=== PATIENT | female | born 1990 | race American Indian/Alaskan Native ===

== ENCOUNTER 2016-09-01 19:18 | Emergency (ER) | payer OTHER, MEDICAID ==
[2016-09-01] MEDS ORDERED: VALIUM PO ONE (20:17)
[2016-09-01] MEDS ORDERED: PERCOCET 5/325 PO ONE (20:17)
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
[2016-09-01 21:22] VITALS: BP 136/73
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
--- NOTE | 2016-09-02 07:40 | XRay Report ---
ROUTINE CHEST, TWO VIEWS: Trauma, pain. PA and lateral views demonstrate the heart and mediastinal contour to be of normal size and shape. The lungs are clear and fully expanded and the soft tissues and bony structures are normal. IMPRESSION: Normal study.
== END 2016-09-01 21:30 | disposition home or self-care (01) ==
LOC: ED 19:18
DX: S39.012A Strain of muscle, fascia and tendon of lower back, initial encounter (principal); J45.909 Unspecified asthma, uncomplicated; V49.9XXA Car occupant (driver) (passenger) injured in unspecified traffic accident, initial encounter; Y93.89 Activity, other specified; Y99.8 Other external cause status; Y92.89 Other specified places as the place of occurrence of the external cause
CPT/HCPCS: 71020; 72100; 72170; 99284

== ENCOUNTER 2017-11-05 05:55 | Emergency (ER) | payer OTHER ==
[2017-11-05] MEDS ORDERED: DELTASONE PO ONE (08:01)
[2017-11-05] MEDS ORDERED: TYLENOL #3 PO ONE (08:01)
--- NOTE | 2017-11-05 08:01 | Emergency Department Report ---
Minor Respiratory - HPI Chief Complaint: Upper Respiratory Infection Stated Complaint: ASTHMA Time Seen by Provider: 11/05/17 07:42 Duration: 4 Days Pain Location: Other (headache) Severity: severe (10/10 and achy, intermittent, located frontally) Minor Respiratory: Yes Rhinorrhea (nasal congestion), Yes Sore Throat (with cough and), Yes Able to Tolerate Fluids, Yes Ear Pain (bilateral), Yes Cough ( dry cough), No Sick Contacts, No Hemoptysis, No Chest Pain, No Shortness of Breath, No Fever Other History: This is a 27-year-old female here report in that she has sneezing , coughing, runny nose and some shortness of breath chest congestion 4 days. She reports headache at 10 out of 10 that comes and goes feels like pressure to the front of her head. She says she's been taking Tylenol without any relief. She denies any fever or chills. Denies any nausea or vomiting. Denies any chest pain. Last menstrual period was 10/29/2017. Headache is better with taken Tylenol and nothing makes it worse. Denies any dizziness, blurred vision or any history of headache. She says she has allergies and she thinks the pollen. ED Review of Systems ROS: Stated complaint: ASTHMA Other details as noted in HPI Constitutional: denies: chills, fever Eyes: denies: eye pain, eye discharge, vision change ENT: ear pain, throat pain, congestion. denies: dental pain, hearing loss, epistaxis Respiratory: cough, shortness of breath (occasionally over the last 4 days), SOB with exertion. denies: orthopnea, SOB at rest, stridor, wheezing Cardiovascular: denies: chest pain, palpitations, edema, syncope Gastrointestinal: denies: abdominal pain, nausea, vomiting, diarrhea Genitourinary: denies: urgency, dysuria, discharge Musculoskeletal: myalgia. denies: back pain, joint swelling, arthralgia Skin: denies: rash, lesions Neurological: headache. denies: weakness, numbness, paresthesias, confusion, abnormal gait, vertigo ED Past Medical Hx - Past Medical History Previous Medical History?: Yes Hx Asthma: Yes - Surgical History Past Surgical History?: Yes Additional Surgical History: - Family History Family history: hypertension - Social History Smoking Status: Never Smoker Substance Use Type: Alcohol - Medications Home Medications: Home Medications Medication Instructions Recorded Confirmed Last Taken Type Albuterol [Proventil] 2 mg PO TID PRN 09/01/16 09/01/16 1 Day Ago History ~08/31/16 1 Fluticasone (Nf) [Flovent Hfa(Nf)] 2 puff IH BID 09/01/16 09/01/16 1 Day Ago History ~08/31/16 1 HYDROcodone/APAP 5-325 [[place] 1 each PO Q6HR PRN #20 tablet 09/01/16 Unknown Rx 5/325] Cetirizine HCl [ZyrTEC] 10 mg PO QDAY 14 Days #14 capsule 11/05/17 Unknown Rx Fluticasone [Flonase] 1 spray NS QDAY 14 Days #1 bottle 11/05/17 Unknown Rx Ibuprofen [Motrin 600 MG tab] 600 mg PO Q8H PRN #12 tablet 11/05/17 Unknown Rx predniSONE [Deltasone] 50 mg PO QDAY 3 Days #3 tab 11/05/17 Unknown Rx Minor Respiratory Exam - Exam General: Vital signs noted. No distress. Alert and acting appropriately. 27-year-old female well-nourished well-developed in no acute distress. HEENT: Yes Moist Mucous Membranes, Yes Rhinorrhea (nasal congestion. Pale and boggy mucosa), No Pharyngeal Erythema, No Pharyngeal Exudates, No Conjuctival Injection, No Frontal Tenderness, No Maxillary Tenderness Ear: Neither TM Bulge (bilateral TM congested without any erythema), Neither TM Erythema, Neither EAC Pain, Neither EAC Discharge Neck: Yes Supple (full range of motion and no C-spine tenderness), No Adenopathy Lungs: Yes Good Air Exchange, Yes Cough (dry cough), No Wheezes, No Ronchi, No Stridor, No Labored Respirations, No Retractions, No Use of Accessory Muscles, No Other Abnormal Lung Sounds Heart: Yes Regular (S1, S2), No Murmur Abdomen: Yes Normal Bowel Sounds (in all quadrants ), No Tenderness (NTTP in all quadrants), No Peritoneal Signs Skin: No Rash, No Edema Neurologic: Alert and oriented 3. Speech is clear and gait is normal. Musculoskeletal: Unremarkable. Extremity: No clubbing, cyanosis or edema. +2 pulses to all extremities and no neurovascular compromise ED Course Vital Signs 11/05/17 05:54 Temperature 97.9 F Pulse Rate 100 H Respiratory 12 Rate Blood Pressure 127/77 O2 Sat by Pulse 97 Oximetry - Reevaluation(s) Reevaluation #1: 11/05/17 08:35 Patient given Tylenol 3 2 tablets emergency room and Deltasone 60 mg by mouth for headache and allergic rhinitis ED Medical Decision Making - Radiology Data Chest x-ray dictated by radiologist and reveals no acute cardiopulmonary processes pleural feud is not seen the bone and soft tissues are well maintained. Normal chest - Medical Decision Making ED course This is a 27-year-old female here to be seen for sneezing, coughing, runny nose , headache shortness of breath and chest congestion 4 days. Patient says she' s been taking Tylenol for headache and it helps but she is still having symptoms no other medication taken in here to be seen. She was seen and evaluated by myself and found to have allergic rhinitis, headache, sore throat and otalgia. Patient had chest x-ray done and was dictated by radiologist and films were reviewed by myself and showed normal x- ray. She was given Tylenol No. 3 2 tablets for headache and Deltasone 60 mg by mouth for allergic rhinitis. She said her headache is better after Tylenol. She voices understanding of diagnosis and radiology report. A/P 1: Allergic rhinitis-prednisone 60 mg by mouth given and plan to discharge home on prednisone, Flonase and Zyrtec 2: Acute headache: Resolved with Tylenol No. 3 plan to discharge home on Motrin 3; pharyngitis: Patient encouraged to gargle warm salt water and is better now 4: Otalgia: This is secondary to allergic rhinitis and will resolve after started on medication. Prescription for Flonase, Motrin, Zyrtec and prednisone given up and discharged. Patient educated on diagnosis, medication, treatment plan and also instructed to gargle with some warm salt water to help with sore throat. Patient discharged home with her family in stable condition. Her vital signs are stable she's a febrile. She is nontoxic in appearance and that she is feeling better and to follow-up with her primary care physician in 3 days and if she does not have one to follow-up with outside Medical Center. She voiced understanding. Critical care attestation.: If time is entered above; I have spent that time in minutes in the direct care of this critically ill patient, excluding procedure time. ED Disposition Clinical Impression: Allergic rhinitis Qualifiers: Allergic rhinitis trigger: unspecified Allergic rhinitis seasonality: seasonal Qualified Code(s): J30.2 - Other seasonal allergic rhinitis Pharyngitis Qualifiers: Pharyngitis/tonsillitis etiology: unspecified etiology Qualified Code(s): J02.9 - Acute pharyngitis, unspecified Headache Qualifiers: Headache type: unspecified Headache chronicity pattern: acute headache Intractability: not intractable Qualified Code(s): R51 - Headache Disposition: DC-01 TO HOME OR SELFCARE Is pt being admited?: No Does the pt Need Aspirin: No Condition: Stable Instructions: Allergic Rhinitis (ED), Acute Headache (ED) Additional Instructions: Please increase her fluid intake Flush nostrils with saline nasal spray F/U with primary care physician as instructed Take medication as prescribed Prescriptions: Cetirizine HCl [ZyrTEC] 10 mg PO QDAY 14 Days #14 capsule Fluticasone [Flonase] 1 spray NS QDAY 14 Days #1 bottle Ibuprofen [Motrin 600 MG tab] 600 mg PO Q8H PRN #12 tablet PRN Reason: Pain predniSONE [Deltasone] 50 mg PO QDAY 3 Days #3 tab Referrals: PRIMARY CARE, [Primary Care Provider] - 11/08/17 [facility] [Outside] - 11/08/17 Forms: Work/School Release Form(ED)
--- NOTE | 2017-11-05 08:53 | XRay Report ---
FINAL REPORT EXAM: XR CHEST ROUTINE 2V HISTORY: SOB/URI TECHNIQUE: PA and lateral views of the chest were submitted. FINDINGS: The heart size and mediastinum appear normal. The lungs are clear. Pleural fluid is not seen. The bones soft tissues are well maintained. IMPRESSION: Normal chest
[2017-11-05 09:06] VITALS: BP 118/70
== END 2017-11-05 09:04 | disposition home or self-care (01) ==
LOC: ED 05:55
DX: J30.2 Other seasonal allergic rhinitis (principal); J02.9 Acute pharyngitis, unspecified; R51 Headache; J45.909 Unspecified asthma, uncomplicated
CPT/HCPCS: 71046; 99283; J7512

== ENCOUNTER 2018-01-02 18:31 | Emergency (ER) | payer SELFPAY ==
[2018-01-02 18:40] VITALS: BP 127/75
[2018-01-02 20:07] LABS: Bilirubin,Urine NEG (Negative); Blood,Urine NEG (Negative); Color,Urine Yellow (Yellow); HCG Qualitative,Urine Negative (Negative); Mucus,Urine FEW /HPF; Protein,Urine <15 mg/dL mg/dL (Negative); Urobilinogen,Urine < 2.0 mg/dL (<2.0)
== END 2018-01-02 21:16 | disposition left against medical advice (07) ==
LOC: ED 18:31
DX: R11.2 Nausea with vomiting, unspecified (principal); R19.7 Diarrhea, unspecified; J45.909 Unspecified asthma, uncomplicated; Z53.21 Procedure and treatment not carried out due to patient leaving prior to being seen by health care provider
CPT/HCPCS: 81001; 81025

== ENCOUNTER 2018-01-04 02:03 | Emergency (ER) | payer MEDICAID ==
[2018-01-04 02:13] VITALS: BP 120/67
[2018-01-04] MEDS ORDERED: DUONEB *Not for PRN Use IH ONE ×2 (02:18→02:46)
--- NOTE | 2018-01-04 06:36 | Emergency Department Report ---
ED Asthma HPI - General Chief Complaint: Adult Asthma Stated Complaint: ISABEL/ASTHMA Time Seen by Provider: 01/04/18 05:50 Source: patient Mode of arrival: Ambulatory Limitations: No Limitations - History of Present Illness Initial Comments: Patient is a 27-year-old -[place] female with history of asthma presents for medication refill of sign with intermittent shortness of breath states symptoms today are 2/10" I just need my medication refill" pt denies sob no cp no dizziness no lightheadedness no hives Complaint: wheezing Onset/Timin -: days(s) Asthma History: childhood onset Severity: moderate Context: allergen exposure Associated Symptoms: dry cough. denies: fever, chest pain, hemoptysis, leg edema, syncope Treatments Prior to Arrival: inhaled bronchodilator - Related Data Current Asthma Therapy: inhaled bronchodilator Home Medications Medication Instructions Recorded Confirmed Last Taken Albuterol [Proventil] 2 mg PO TID PRN 09/01/16 09/01/16 1 Day Ago ~08/31/16 1 Previous Rx's Medication Instructions Recorded Last Taken Type HYDROcodone/APAP 5-325 [[place] 1 each PO Q6HR PRN #20 tablet 09/01/16 Unknown Rx 5/325] Cetirizine HCl [ZyrTEC] 10 mg PO QDAY 14 Days #14 capsule 11/05/17 Unknown Rx Fluticasone [Flonase] 1 spray NS QDAY 14 Days #1 bottle 11/05/17 Unknown Rx Ibuprofen [Motrin 600 MG tab] 600 mg PO Q8H PRN #12 tablet 11/05/17 Unknown Rx predniSONE [Deltasone] 50 mg PO QDAY 3 Days #3 tab 11/05/17 Unknown Rx ALBUTEROL Inhaler [ProAir HFA 2 puff IH QID PRN #2 inhalation 01/04/18 Unknown Rx Inhaler] Benzonatate [Tessalon Perle] 100 mg PO TID PRN #30 capsule 01/04/18 Unknown Rx Fluticasone (Nf) [Flovent 44 2 puff IH BID #2 puff 01/04/18 Unknown Rx MCG/PUFF HFA] Ibuprofen 800 mg PO TID #30 tablet 01/04/18 Unknown Rx predniSONE [Deltasone] 40 mg PO QDAY 5 Days #10 tab 01/04/18 Unknown Rx Allergies Allergy/AdvReac Type Severity Reaction Status Date / Time No Known Allergies Allergy Verified 01/02/18 18:37 ED Review of Systems ROS: Stated complaint: ISABEL/ASTHMA Other details as noted in HPI Constitutional: denies: chills, fever Eyes: denies: eye pain, eye discharge, vision change ENT: denies: ear pain, throat pain Respiratory: cough, orthopnea, shortness of breath. denies: wheezing Cardiovascular: denies: chest pain, palpitations, dyspnea on exertion, orthopnea , edema, syncope, paroxysmal nocturnal dyspnea Endocrine: no symptoms reported Gastrointestinal: denies: abdominal pain, nausea, vomiting, diarrhea, constipation, hematemesis, hematochezia Genitourinary: hematuria. denies: urgency, dysuria, discharge Musculoskeletal: denies: back pain, joint swelling, arthralgia Skin: denies: rash, lesions Neurological: denies: headache, weakness, paresthesias Psychiatric: denies: anxiety, depression Hematological/Lymphatic: denies: easy bleeding, easy bruising ED Past Medical Hx - Past Medical History Hx Asthma: Yes - Surgical History Additional Surgical History: - Social History Smoking Status: Never Smoker Substance Use Type: None - Medications Home Medications: Home Medications Medication Instructions Recorded Confirmed Last Taken Type Albuterol [Proventil] 2 mg PO TID PRN 09/01/16 09/01/16 1 Day Ago History ~08/31/16 1 HYDROcodone/APAP 5-325 [[place] 1 each PO Q6HR PRN #20 tablet 09/01/16 Unknown Rx 5/325] Cetirizine HCl [ZyrTEC] 10 mg PO QDAY 14 Days #14 capsule 11/05/17 Unknown Rx Fluticasone [Flonase] 1 spray NS QDAY 14 Days #1 bottle 11/05/17 Unknown Rx Ibuprofen [Motrin 600 MG tab] 600 mg PO Q8H PRN #12 tablet 11/05/17 Unknown Rx predniSONE [Deltasone] 50 mg PO QDAY 3 Days #3 tab 11/05/17 Unknown Rx ALBUTEROL Inhaler [ProAir HFA 2 puff IH QID PRN #2 inhalation 01/04/18 Unknown Rx Inhaler] Benzonatate [Tessalon Perle] 100 mg PO TID PRN #30 capsule 01/04/18 Unknown Rx Fluticasone (Nf) [Flovent 44 2 puff IH BID #2 puff 01/04/18 Unknown Rx MCG/PUFF HFA] Ibuprofen 800 mg PO TID #30 tablet 01/04/18 Unknown Rx predniSONE [Deltasone] 40 mg PO QDAY 5 Days #10 tab 01/04/18 Unknown Rx ED Physical Exam - General Limitations: No Limitations General appearance: alert, in no apparent distress - Eye Eye exam: Present: normal appearance, PERRL, conjunctival injection Pupils: Present: normal accommodation, unequal - ENT ENT exam: Present: normal exam, mucous membranes moist, TM's normal bilaterally , normal external ear exam - Expanded ENT Exam Expanded TM/Canal exam: Erythema: Left TM, Right TM Mouth exam: Present: tongue normal. Absent: trismus, tongue elevation, laceration Teeth exam: Present: normal inspection Throat exam: Positive: normal inspection. Negative: tonsillomegaly, tonsillar exudate, R peritonsillar mass, L peritonsillar mass - Neck Neck exam: Present: normal inspection, meningismus, lymphadenopathy, thyromegaly. Absent: tenderness, full ROM - Respiratory Respiratory exam: Present: normal lung sounds bilaterally. Absent: respiratory distress, wheezes, stridor, chest wall tenderness, accessory muscle use, decreased breath sounds, prolonged expiratory - Cardiovascular Cardiovascular Exam: Present: regular rate, normal rhythm, normal heart sounds. Absent: systolic murmur, diastolic murmur, rubs, gallop - GI/Abdominal GI/Abdominal exam: Present: soft, normal bowel sounds. Absent: distended, tenderness, guarding, rebound, organomegaly, mass, bruit, pulsatile mass, hernia - Rectal Rectal exam: Present: deferred - External exam: Present: normal external exam - Extremities Exam Extremities exam: Present: normal inspection - Back Exam Back exam: Present: normal inspection - Neurological Exam Neurological exam: Present: alert, oriented X3 - Psychiatric Psychiatric exam: Present: normal affect, normal mood - Skin Skin exam: Present: warm, dry, intact, normal color. Absent: rash ED Course Vital Signs 01/04/18 02:06 Temperature 98.1 F Pulse Rate 84 Respiratory 18 Rate Blood Pressure 120/67 O2 Sat by Pulse 94 Oximetry Critical care attestation.: If time is entered above; I have spent that time in minutes in the direct care of this critically ill patient, excluding procedure time. ED Disposition Clinical Impression: Medication refill Disposition: DC-01 TO HOME OR SELFCARE Is pt being admited?: No Does the pt Need Aspirin: No Condition: Good Instructions: Asthma in Children (ED) Prescriptions: ALBUTEROL Inhaler [ProAir HFA Inhaler] 2 puff IH QID PRN #2 inhalation PRN Reason: Shortness Of Breath Benzonatate [Tessalon Perle] 100 mg PO TID PRN #30 capsule PRN Reason: Cough Fluticasone (Nf) [Flovent 44 MCG/PUFF HFA] 2 puff IH BID #2 puff Ibuprofen 800 mg PO TID #30 tablet predniSONE [Deltasone] 40 mg PO QDAY 5 Days #10 tab Referrals: HARMONY VALENCIA MD [Other] - 3-5 Days Forms: Work/School Release Form(ED) Time of Disposition: 06:52
== END 2018-01-04 07:03 | disposition home or self-care (01) ==
LOC: ED 02:03
DX: J45.909 Unspecified asthma, uncomplicated (principal); Z76.0 Encounter for issue of repeat prescription
CPT/HCPCS: 99282

== ENCOUNTER 2018-10-21 09:14 | Emergency (ER) | payer MEDICAID ==
[2018-10-21] MEDS ORDERED: DUONEB *Not for PRN Use IH ONE (09:30)
[2018-10-21 09:36] VITALS: BP 111/72
[2018-10-21] MEDS ORDERED: DECADRON IM ONE (10:13)
--- NOTE | 2018-10-21 10:17 | Emergency Department Report ---
ED Asthma HPI - General Chief Complaint: Adult Asthma Stated Complaint: ASTHMA Source: patient Mode of arrival: Ambulatory Limitations: No Limitations - History of Present Illness Initial Comments: This is a 28-year-old [place] female who presents to the emergency room with wheezing and shortness breath for 2 days. Past medical history of asthma. Patient states she ran out of inhaler and albuterol inhaler medication one to 2 weeks ago. She is requesting refills. She denies fever, cough, chest pain, palpitations. MD Complaint: shortness of breath, wheezing Onset/Timin -: days(s) Asthma History: childhood onset Severity: mild Context: ran out of meds Associated Symptoms: none - Related Data Current Asthma Therapy: none Previous Rx's Medication Instructions Recorded Last Taken Type ALBUTEROL Inhaler (OR & NICU) 2 puff IH QID PRN #1 inhalation 04/17/18 Unknown Rx [ProAir HFA Inhaler] ALBUTEROL NEB's [Proventil 0.083% 2.5 mg IH TID PRN #20 neb 04/17/18 Unknown Rx NEBS] Amoxicillin 500 mg PO BID #20 capsule 05/23/18 Unknown Rx Fluticasone [Flonase] 1 spray NS QDAY #1 bottle 05/23/18 Unknown Rx predniSONE [Deltasone] 50 mg PO QDAY #5 tab 05/23/18 Unknown Rx ALBUTEROL Inhaler (OR & NICU) 2 puff IH QID PRN #1 inhalation 10/21/18 Unknown Rx [ProAir HFA Inhaler] ALBUTEROL NEB's [Proventil 0.083% 2.5 mg IH TID PRN #20 neb 10/21/18 Unknown Rx NEBS] Prednisone [predniSONE 10 mg 10 mg PO .TAPER #1 tab.ds.pk 10/21/18 Unknown Rx (6-Day Pack, 21 Tabs)] Allergies Allergy/AdvReac Type Severity Reaction Status Date / Time No Known Allergies Allergy Verified 05/23/18 10:15 ED Review of Systems ROS: Stated complaint: ASTHMA Other details as noted in HPI Constitutional: denies: chills, fever Respiratory: SOB with exertion, wheezing. denies: cough, shortness of breath Cardiovascular: denies: chest pain, palpitations Gastrointestinal: denies: abdominal pain, nausea, diarrhea Skin: denies: rash, lesions Neurological: denies: headache, weakness, paresthesias Psychiatric: denies: anxiety, depression ED Past Medical Hx - Past Medical History Hx Asthma: Yes - Surgical History Additional Surgical History: x3 - Social History Smoking Status: Never Smoker Substance Use Type: Alcohol - Medications Home Medications: Home Medications Medication Instructions Recorded Confirmed Last Taken Type ALBUTEROL Inhaler (OR & NICU) 2 puff IH QID PRN #1 inhalation 04/17/18 Unknown Rx [ProAir HFA Inhaler] ALBUTEROL NEB's [Proventil 0.083% 2.5 mg IH TID PRN #20 neb 04/17/18 Unknown Rx NEBS] Amoxicillin 500 mg PO BID #20 capsule 05/23/18 Unknown Rx Fluticasone [Flonase] 1 spray NS QDAY #1 bottle 05/23/18 Unknown Rx predniSONE [Deltasone] 50 mg PO QDAY #5 tab 05/23/18 Unknown Rx ALBUTEROL Inhaler (OR & NICU) 2 puff IH QID PRN #1 inhalation 10/21/18 Unknown Rx [ProAir HFA Inhaler] ALBUTEROL NEB's [Proventil 0.083% 2.5 mg IH TID PRN #20 neb 10/21/18 Unknown Rx NEBS] Prednisone [predniSONE 10 mg 10 mg PO .TAPER #1 tab.ds.pk 10/21/18 Unknown Rx (6-Day Pack, 21 Tabs)] ED Physical Exam - General Limitations: No Limitations General appearance: alert, in no apparent distress - Respiratory Respiratory exam: Present: normal lung sounds bilaterally. Absent: respiratory distress, chest wall tenderness - Cardiovascular Cardiovascular Exam: Present: regular rate, normal rhythm. Absent: systolic murmur, diastolic murmur, rubs, gallop - GI/Abdominal GI/Abdominal exam: Present: soft, normal bowel sounds - Extremities Exam Extremities exam: Present: normal inspection - Neurological Exam Neurological exam: Present: alert, oriented X3 - Psychiatric Psychiatric exam: Present: normal affect, normal mood - Skin Skin exam: Present: warm, dry, intact, normal color. Absent: rash ED Course Vital Signs 10/21/18 10/21/18 10/21/18 09:28 09:41 10:00 Temperature 97.4 F L Pulse Rate 110 H Pulse Rate [ 80 82 Posterior Bilateral Throughout] Respiratory 16 Rate Respiratory 18 18 Rate [Posterior Bilateral Throughout] Blood Pressure 111/72 [Left] O2 Sat by Pulse 99 Oximetry ED Medical Decision Making - Medical Decision Making 28 y.o. female that presents with SOB and wheezing for 2 days. History of Asthma. Noncompliant with medication. She ran out of albuterol inhaler 2 weeks ago. Patient examined by me and in no distress. Vitals stable. Given duoneb treatment once and dexamethasone 10 mg IV once in ER. Asthma exacerbation, Start albuterol inhaler, albuterol nebulizer solution, and prednisone taper. Discharged home stable. Return to work tomorrow. Critical care attestation.: If time is entered above; I have spent that time in minutes in the direct care of this critically ill patient, excluding procedure time. ED Disposition Clinical Impression: Shortness of breath on exertion Asthma exacerbation Qualifiers: Asthma severity: mild Asthma persistence: intermittent Qualified Code(s): J45.21 - Mild intermittent asthma with (acute) exacerbation Disposition: TO HOME OR SELFCARE Is pt being admited?: No Does the pt Need Aspirin: No Condition: Stable Instructions: Asthma (ED) Additional Instructions: It is important to use inhaler or have active albuterol inhaler and avoiding asthma triggers. Complete full course of prednisone steroids as prescribed. Follow up with Primary Care Provider in 24-72 hours. Prescriptions: Prednisone [predniSONE 10 mg (6-Day Pack, 21 Tabs)] 10 mg PO .TAPER #1 tab.ds.pk ALBUTEROL Inhaler (OR & NICU) [ProAir HFA Inhaler] 2 puff IH QID PRN #1 inhalation PRN Reason: Shortness Of Breath ALBUTEROL NEB's [Proventil 0.083% NEBS] 2.5 mg IH TID PRN #20 neb PRN Reason: Wheezing Referrals: FLO JAQUEZ MD [Primary Care Provider] - 3-5 Days [facility] [Provider Group] - 3-5 Days [facility] [Outside] - 3-5 Days Forms: Work/School Release Form(ED) Time of Disposition: 10:24
== END 2018-10-21 10:36 | disposition home or self-care (01) ==
LOC: ED 09:14
DX: J45.21 Mild intermittent asthma with (acute) exacerbation (principal)
CPT/HCPCS: 94640; 96372; 99282; J1100

== ENCOUNTER 2019-05-31 09:28 | Emergency (ER) | payer MEDICAID ==
--- NOTE | 2019-05-31 15:11 | Emergency Department Report ---
ED General Adult HPI - General Chief complaint: Upper Respiratory Infection Stated complaint: LARINGITIS,ASTHMA Time Seen by Provider: 05/31/19 14:03 Source: patient Mode of arrival: Ambulatory Limitations: No Limitations - History of Present Illness Initial comments: 29yo BF states that has sore throat, body aches, chills and cough x 6 days. Pt states that she has a history of bronchitis. -: days(s) (6) Location: neck, chest Radiation: non-radiation Severity scale (0 -10): 4 Quality: aching Consistency: intermittent Improves with: none Worsens with: none Associated Symptoms: malaise Treatments Prior to Arrival: none - Related Data Previous Rx's Medication Instructions Recorded Last Taken Type ALBUTEROL Inhaler (OR & NICU) 2 puff IH QID PRN #1 inhalation 04/17/18 Unknown Rx [ProAir HFA Inhaler] ALBUTEROL NEB's [Proventil 0.083% 2.5 mg IH TID PRN #20 neb 04/17/18 Unknown Rx NEBS] Amoxicillin 500 mg PO BID #20 capsule 05/23/18 Unknown Rx Fluticasone [Flonase] 1 spray NS QDAY #1 bottle 05/23/18 Unknown Rx predniSONE [Deltasone] 50 mg PO QDAY #5 tab 05/23/18 Unknown Rx ALBUTEROL Inhaler (OR & NICU) 2 puff IH QID PRN #1 inhalation 10/21/18 Unknown Rx [ProAir HFA Inhaler] ALBUTEROL NEB's [Proventil 0.083% 2.5 mg IH TID PRN #20 neb 10/21/18 Unknown Rx NEBS] Prednisone [predniSONE 10 mg 10 mg PO .TAPER #1 tab.ds.pk 10/21/18 Unknown Rx (6-Day Pack, 21 Tabs)] Amoxicillin/Potassium Clav 1 each PO BID 10 Days #20 tablet 05/31/19 Unknown Rx [Augmentin 875-125 Tablet] Allergies Allergy/AdvReac Type Severity Reaction Status Date / Time No Known Allergies Allergy Verified 05/23/18 10:15 ED Review of Systems ROS: Stated complaint: LARINGITIS,ASTHMA Other details as noted in HPI Comment: All other systems reviewed and negative Constitutional: see HPI ENT: as per HPI Respiratory: see HPI ED Past Medical Hx - Past Medical History Previous Medical History?: Yes Hx Asthma: Yes - Surgical History Past Surgical History?: Yes Additional Surgical History: x3 - Social History Smoking Status: Never Smoker - Medications Home Medications: Home Medications Medication Instructions Recorded Confirmed Last Taken Type ALBUTEROL Inhaler (OR & NICU) 2 puff IH QID PRN #1 inhalation 04/17/18 Unknown Rx [ProAir HFA Inhaler] ALBUTEROL NEB's [Proventil 0.083% 2.5 mg IH TID PRN #20 neb 04/17/18 Unknown Rx NEBS] Amoxicillin 500 mg PO BID #20 capsule 05/23/18 Unknown Rx Fluticasone [Flonase] 1 spray NS QDAY #1 bottle 05/23/18 Unknown Rx predniSONE [Deltasone] 50 mg PO QDAY #5 tab 05/23/18 Unknown Rx ALBUTEROL Inhaler (OR & NICU) 2 puff IH QID PRN #1 inhalation 10/21/18 Unknown Rx [ProAir HFA Inhaler] ALBUTEROL NEB's [Proventil 0.083% 2.5 mg IH TID PRN #20 neb 10/21/18 Unknown Rx NEBS] Prednisone [predniSONE 10 mg 10 mg PO .TAPER #1 tab.ds.pk 10/21/18 Unknown Rx (6-Day Pack, 21 Tabs)] Amoxicillin/Potassium Clav 1 each PO BID 10 Days #20 tablet 05/31/19 Unknown Rx [Augmentin 875-125 Tablet] ED Physical Exam - General Limitations: No Limitations General appearance: alert, in no apparent distress - Head Head exam: Present: atraumatic, normocephalic, normal inspection - Eye Eye exam: Present: normal appearance, PERRL, EOMI - ENT ENT exam: Present: normal exam - Expanded ENT Exam Expanded Throat exam: Positive: tonsillar erythema, tonsillomegaly, tonsillar exudate - Neck Neck exam: Present: tenderness, lymphadenopathy (bila) - Respiratory Respiratory exam: Present: normal lung sounds bilaterally, chest wall tenderness, prolonged expiratory. Absent: respiratory distress, wheezes, rales - GI/Abdominal GI/Abdominal exam: Present: soft. Absent: distended, tenderness - Rectal Rectal exam: Present: deferred - Extremities Exam Extremities exam: Present: normal inspection, full ROM. Absent: tenderness - Back Exam Back exam: Present: normal inspection, full ROM. Absent: tenderness, CVA tenderness (R), CVA tenderness (L) - Neurological Exam Neurological exam: Present: alert, altered, oriented X3, normal gait - Psychiatric Psychiatric exam: Present: normal affect, normal mood. Absent: depressed - Skin Skin exam: Present: warm, dry, intact ED Course Vital Signs 05/31/19 09:32 Temperature 98.1 F Pulse Rate 92 H Respiratory 16 Rate Blood Pressure 119/75 [Right] O2 Sat by Pulse 97 Oximetry ED Medical Decision Making - Medical Decision Making 29yo BF states that has sore throat, body aches, chills and cough x 6 days. Pt states that she has a history of bronchitis. Pt was given a Duoneb treatment in the ER. She verbalizes feeling less work during breathing and an improvement overall. Upon discharge pt was instructed to use her LONG inhaler as directed and given Augmentin due to the presence of tonsillar exudate along with pharyngitis. Pt was told to f/u with her PCP in 2-3 days and see ER as needed. Critical care attestation.: If time is entered above; I have spent that time in minutes in the direct care of this critically ill patient, excluding procedure time. ED Disposition Clinical Impression: Pharyngitis, Bronchitis Disposition: TO HOME OR SELFCARE Is pt being admited?: No Does the pt Need Aspirin: No Condition: Stable Instructions: Chronic Bronchitis (ED), Strep Throat (ED) Additional Instructions: Upon discharge pt was instructed to use her LONG inhaler as directed and given Augmentin due to the presence of tonsillar exudate along with pharyngitis. Pt was told to f/u with her PCP in 2-3 days and see ER as needed. Prescriptions: Amoxicillin/Potassium Clav [Augmentin 875-125 Tablet] 1 each PO BID 10 Days #20 tablet Referrals: PRIMARY CARE, [Primary Care Provider] - 3-5 Days Time of Disposition: 16:18
[2019-05-31] MEDS ORDERED: IPRATROPIUM/ALBUTEROL SULFATE 3 ML AMPUL.NEB IH ONE ×2 (15:24→15:34)
[2019-05-31 16:26] VITALS: BP 114/74
[2019-05-31] MEDS ORDERED: IPRATROPIUM/ALBUTEROL SULFATE 3 ML AMPUL.NEB IH SCH (20:00)
== END 2019-05-31 16:25 | disposition home or self-care (01) ==
LOC: ED 09:28
DX: J40 Bronchitis, not specified as acute or chronic (principal); Z98.890 Other specified postprocedural states; Z79.2 Long term (current) use of antibiotics; Z79.899 Other long term (current) drug therapy
CPT/HCPCS: 94640; 99282

== ENCOUNTER 2019-10-01 11:02 | Emergency (ER) | payer MEDICAID ==
[2019-10-01 11:12] VITALS: BP 103/84
--- NOTE | 2019-10-01 11:31 | Emergency Department Report ---
ED Asthma HPI - General Chief Complaint: Adult Asthma Stated Complaint: ASTHMA Time Seen by Provider: 10/01/19 11:22 Source: patient Mode of arrival: Ambulatory Limitations: No Limitations - Related Data Previous Rx's Medication Instructions Recorded Last Taken Type ALBUTEROL NEB's [Proventil 0.083% 2.5 mg IH TID PRN #20 neb 04/17/18 Unknown Rx NEBS] Albuterol INH(or & Nicu Only) 2 puff IH QID PRN #1 inhalation 04/17/18 Unknown Rx [ProAir HFA Inhaler] Amoxicillin 500 mg PO BID #20 capsule 05/23/18 Unknown Rx Fluticasone [Flonase] 1 spray NS QDAY #1 bottle 05/23/18 Unknown Rx predniSONE [Deltasone] 50 mg PO QDAY #5 tab 05/23/18 Unknown Rx ALBUTEROL NEB's [Proventil 0.083% 2.5 mg IH TID PRN #20 neb 10/21/18 Unknown Rx NEBS] Albuterol INH(or & Nicu Only) 2 puff IH QID PRN #1 inhalation 10/21/18 Unknown Rx [ProAir HFA Inhaler] Prednisone [predniSONE 10 mg 10 mg PO .TAPER #1 tab.ds.pk 10/21/18 Unknown Rx (6-Day Pack, 21 Tabs)] Amoxicillin/Potassium Clav 1 each PO BID 10 Days #20 tablet 05/31/19 Unknown Rx [Augmentin 875-125 Tablet] Allergies Allergy/AdvReac Type Severity Reaction Status Date / Time No Known Allergies Allergy Verified 05/23/18 10:15 ED Review of Systems ROS: Stated complaint: ASTHMA Other details as noted in HPI ED Past Medical Hx - Past Medical History Hx Asthma: Yes - Surgical History Additional Surgical History: x3 - Social History Smoking Status: Never Smoker Substance Use Type: None - Medications Home Medications: Home Medications Medication Instructions Recorded Confirmed Last Taken Type ALBUTEROL NEB's [Proventil 0.083% 2.5 mg IH TID PRN #20 neb 04/17/18 Unknown Rx NEBS] Albuterol INH(or & Nicu Only) 2 puff IH QID PRN #1 inhalation 04/17/18 Unknown Rx [ProAir HFA Inhaler] Amoxicillin 500 mg PO BID #20 capsule 05/23/18 Unknown Rx Fluticasone [Flonase] 1 spray NS QDAY #1 bottle 05/23/18 Unknown Rx predniSONE [Deltasone] 50 mg PO QDAY #5 tab 05/23/18 Unknown Rx ALBUTEROL NEB's [Proventil 0.083% 2.5 mg IH TID PRN #20 neb 10/21/18 Unknown Rx NEBS] Albuterol INH(or & Nicu Only) 2 puff IH QID PRN #1 inhalation 10/21/18 Unknown Rx [ProAir HFA Inhaler] Prednisone [predniSONE 10 mg 10 mg PO .TAPER #1 tab.ds.pk 10/21/18 Unknown Rx (6-Day Pack, 21 Tabs)] Amoxicillin/Potassium Clav 1 each PO BID 10 Days #20 tablet 05/31/19 Unknown Rx [Augmentin 875-125 Tablet] ED Physical Exam - General Limitations: No Limitations ED Course Vital Signs 10/01/19 11:11 Temperature 98.1 F Pulse Rate 104 H Respiratory 15 Rate Blood Pressure 103/84 [Right] O2 Sat by Pulse 97 Oximetry Critical care attestation.: If time is entered above; I have spent that time in minutes in the direct care of this critically ill patient, excluding procedure time. ED Disposition Condition: Stable
--- NOTE | 2019-10-01 11:40 | Emergency Department Report ---
Chief Complaint: Adult Asthma Stated Complaint: ASTHMA Time Seen by Provider: 10/01/19 11:22 - HPI History of Present Illness: 29-year-old -[place] female with a history of asthma comes in stating that she thinks she is having either asthma symptoms or allergies. Patient admits to runny nose sneezing dry eyes dry cough and clearing of her throat. Patient has taken nothing for her symptoms but has used her inhaler this morning. Patient denies any fever chills no nausea no vomiting no shortness of breath with exertion or headache. - Exam Vital Signs: Vital Signs 10/01/19 11:11 Temperature 98.1 F Pulse Rate 104 H Respiratory 15 Rate Blood Pressure 103/84 [Right] O2 Sat by Pulse 97 Oximetry Physical Exam: Gen: alert oriented NAD Mouth: Oral mucosa is moist throat is non-edematous nonerythematous no exudate. Cardic: regular rate and rhythm no murmurs appreciated Resp: Clear to auscultation bilateral no wheezing no rales or rhonchi. Abdomen: Soft nontender nondistended normal bowel sounds. Mini neuro: Amatory without difficulty MSE screening note: Focused history and physical exam performed. Due to findings the following was ordered: 29-year-old -[place] female with a history of asthma comes in stating that she thinks she is having either asthma symptoms or allergies. Patient admits to runny nose sneezing dry eyes dry cough and clearing of her throat. Patient has taken nothing for her symptoms but has used her inhaler this morning. Patient denies any fever chills no nausea no vomiting no shortness of breath with exertion. Recommend patient to take [id number] Zyrtec's, Flonase, increase her water intake use her inhaler as needed and she can take [id number] Pataday or eyedrops for dry eyes. Patient can follow-up with her primary care doctor which she reports is at [facility]. ED Disposition for MSE Disposition: MED SCREENING EXAM-LEFT Is pt being admited?: No Does the pt Need Aspirin: No Condition: Stable Additional Instructions: Recommend patient to take [id number] Zyrtec's, Flonase, increase her water intake use her inhaler as needed and she can take [id number] Pataday or eyedrops for dry eyes. Patient can follow-up with her primary care doctor which she reports is at [facility].
== END 2019-10-01 11:48 | disposition left against medical advice (07) ==
LOC: ED 11:02
DX: J45.909 Unspecified asthma, uncomplicated (principal); Z53.21 Procedure and treatment not carried out due to patient leaving prior to being seen by health care provider

== ENCOUNTER 2020-06-07 15:55 | Emergency (ER) | payer SELFPAY ==
[2020-06-07 16:25] VITALS: BP 139/110
--- NOTE | 2020-06-07 16:34 | Emergency Department Report ---
ED General Adult HPI - General Chief complaint: Adult Asthma Stated complaint: ASTHMA Time Seen by Provider: 06/07/20 16:27 Source: patient Mode of arrival: Ambulatory Limitations: No Limitations - History of Present Illness Initial comments: 30-year-old -[place] female patient presents with complaints of asthma exacerbation x3 days. She states she ran out of her Singulair, albuterol inhaler, and nebulizer solution a few weeks ago. She states she has some mild shortness of breath currently and wheezing. She denies any cough, mopped assist , chest pain, or fever/chills/sweats. No recent known sick contacts per patient. Severity scale (0 -10): 0 - Related Data Previous Rx's Medication Instructions Recorded Last Taken Type ALBUTEROL NEB's [Proventil 0.083% 2.5 mg IH TID PRN #20 neb 04/17/18 Unknown Rx NEBS] Albuterol Mdi (or & Nicu Only) 2 puff IH QID PRN #1 inhalation 04/17/18 Unknown Rx [ProAir HFA Inhaler] Amoxicillin 500 mg PO BID #20 capsule 05/23/18 Unknown Rx Fluticasone [Flonase] 1 spray NS QDAY #1 bottle 05/23/18 Unknown Rx predniSONE [Deltasone] 50 mg PO QDAY #5 tab 05/23/18 Unknown Rx Amoxicillin/Potassium Clav 1 each PO BID 10 Days #20 tablet 05/31/19 Unknown Rx [Augmentin 875-125 Tablet] ALBUTEROL NEB's [Proventil 0.083% 2.5 mg IH TID PRN 30 Days #1 box 06/07/20 Unknown Rx NEBS] Albuterol Mdi (or & Nicu Only) 2 puff IH QID PRN 30 Days #1 06/07/20 Unknown Rx [ProAir HFA Inhaler] inhalation Montelukast [Singulair] 10 mg PO QPM 30 Days #30 tablet 06/07/20 Unknown Rx Prednisone [predniSONE 10 mg 10 mg PO .TAPER #1 tab.ds.pk 06/07/20 Unknown Rx (6-Day Pack, 21 Tabs)] Allergies Allergy/AdvReac Type Severity Reaction Status Date / Time No Known Allergies Allergy Verified 05/23/18 10:15 ED Review of Systems ROS: Stated complaint: ASTHMA Other details as noted in HPI Constitutional: denies: chills, fever, malaise ENT: denies: throat pain Respiratory: shortness of breath, wheezing. denies: cough Cardiovascular: denies: chest pain Gastrointestinal: denies: nausea, vomiting, diarrhea Musculoskeletal: denies: joint swelling Skin: denies: change in color Neurological: denies: headache Hematological/Lymphatic: denies: swollen glands ED Past Medical Hx - Past Medical History Previous Medical History?: Yes Hx Asthma: Yes - Surgical History Past Surgical History?: Yes Additional Surgical History: x3 - Social History Smoking Status: Never Smoker Substance Use Type: None - Medications Home Medications: Home Medications Medication Instructions Recorded Confirmed Last Taken Type ALBUTEROL NEB's [Proventil 0.083% 2.5 mg IH TID PRN #20 neb 04/17/18 Unknown Rx NEBS] Albuterol Mdi (or & Nicu Only) 2 puff IH QID PRN #1 inhalation 04/17/18 Unknown Rx [ProAir HFA Inhaler] Amoxicillin 500 mg PO BID #20 capsule 05/23/18 Unknown Rx Fluticasone [Flonase] 1 spray NS QDAY #1 bottle 05/23/18 Unknown Rx predniSONE [Deltasone] 50 mg PO QDAY #5 tab 05/23/18 Unknown Rx Amoxicillin/Potassium Clav 1 each PO BID 10 Days #20 tablet 05/31/19 Unknown Rx [Augmentin 875-125 Tablet] ALBUTEROL NEB's [Proventil 0.083% 2.5 mg IH TID PRN 30 Days #1 box 06/07/20 Unknown Rx NEBS] Albuterol Mdi (or & Nicu Only) 2 puff IH QID PRN 30 Days #1 06/07/20 Unknown Rx [ProAir HFA Inhaler] inhalation Montelukast [Singulair] 10 mg PO QPM 30 Days #30 tablet 06/07/20 Unknown Rx Prednisone [predniSONE 10 mg 10 mg PO .TAPER #1 tab.ds.pk 06/07/20 Unknown Rx (6-Day Pack, 21 Tabs)] ED Physical Exam - General Limitations: No Limitations General appearance: alert, in no apparent distress - Head Head exam: Present: atraumatic, normocephalic - Eye Eye exam: Present: normal appearance. Absent: scleral icterus - Respiratory Respiratory exam: Present: wheezes (Diffuse mild), decreased breath sounds (Diffuse, mild). Absent: respiratory distress, rales, rhonchi, stridor, chest wall tenderness, accessory muscle use - Cardiovascular Cardiovascular Exam: Present: regular rate, normal rhythm - Extremities Exam Extremities exam: Present: full ROM - Back Exam Back exam: Present: normal inspection - Neurological Exam Neurological exam: Present: alert, oriented X3, normal gait - Psychiatric Psychiatric exam: Present: normal affect, normal mood - Skin Skin exam: Present: warm, dry, intact, normal color. Absent: rash, cyanosis ED Course Vital Signs 06/07/20 16:20 Temperature 97.4 F L Pulse Rate 98 H Respiratory 20 Rate Blood Pressure 139/110 [Right] O2 Sat by Pulse 98 Oximetry ED Medical Decision Making - Medical Decision Making 30-year-old -[place] female patient presents with complaints of asthma exacerbation x3 days. She states she ran out of her Singulair, albuterol inhale r, and nebulizer solution a few weeks ago. She states she has some mild shortness of breath currently and wheezing. She denies any cough, mopped assist, chest pain, or fever/chills/sweats. No recent known sick contacts per patient. Patient states this feels like my asthma Wheezing with mild decreased breath sounds noted diffusely throughout the lung fernandes on exam. Offered patient nebulizer treatment here in ED, she declines states she would prefer refills of her medications. Med refills given. Discussed elevated diastolic blood pressure and need for follow-up with PCP in 3 to 5 days. Strict return precautions were also discussed in detail with patient who verbalizes understanding. Critical care attestation.: If time is entered above; I have spent that time in minutes in the direct care of this critically ill patient, excluding procedure time. ED Disposition Clinical Impression: Mild intermittent asthma with (acute) exacerbation, Elevated blood pressure reading Disposition: - TO HOME OR SELFCARE Is pt being admited?: No Condition: Stable Instructions: Asthma (ED), Asthma, Adult, Hypertension, Adult Prescriptions: Prednisone [predniSONE 10 mg (6-Day Pack, 21 Tabs)] 10 mg PO .TAPER #1 tab.ds.pk Albuterol Mdi (or & Nicu Only) [ProAir HFA Inhaler] 2 puff IH QID PRN 30 Days #1 inhalation PRN Reason: Shortness Of Breath ALBUTEROL NEB's [Proventil 0.083% NEBS] 2.5 mg IH TID PRN 30 Days #1 box PRN Reason: Wheezing Montelukast [Singulair] 10 mg PO QPM 30 Days #30 tablet Referrals: [facility] [Provider Group] - 3-5 Days
== END 2020-06-07 16:59 | disposition home or self-care (01) ==
LOC: ED 15:55
DX: J45.909 Unspecified asthma, uncomplicated (principal); R03.0 Elevated blood-pressure reading, without diagnosis of hypertension; Z79.899 Other long term (current) drug therapy
CPT/HCPCS: 99282

== ENCOUNTER 2020-07-31 11:07 | Emergency (ER) | payer MEDICAID ==
[2020-07-31 11:27] VITALS: BP 116/69
[2020-07-31] MEDS ORDERED: IPRATROPIUM/ALBUTEROL SULFATE 3 ML AMPUL.NEB IH ONE (11:31)
[2020-07-31] MEDS ORDERED: predniSONE 20 MG TAB PO ONE (11:31)
--- NOTE | 2020-07-31 11:36 | Emergency Department Report ---
ED Asthma HPI - General Chief Complaint: Adult Asthma Stated Complaint: ISABEL Time Seen by Provider: 07/31/20 11:11 Source: patient Mode of arrival: Ambulatory Limitations: No Limitations - History of Present Illness Initial Comments: This is a 30-year-old female nontoxic, well nourished in appearance, no acute signs of distress presents to the ED with c/o of acute on chronic asthma exacerbation. Patient stated she is out of her albuterol inhaler 1 month. Patient stated that she has seasonal allergies to pollen and has been outside that might have triggered her symptoms. Patient denies any cough. Patient denies any sick contact. Patient denies any recent travels, long car, recent hospital stays. Patient denies any calf pain or calf tenderness. Patient denies any chest pain, short of breath, fever, chills, nausea, vomiting, hemoptysis, numbness, tingling, headache or stiff neck. Past medical history includes asthma. MD Complaint: "asthma attack", wheezing -: days(s) Asthma History: childhood onset Severity: mild Context: none known Associated Symptoms: none. denies: productive cough, dry cough, fever, chest pain, hemoptysis, leg edema, syncope - Related Data Current Asthma Therapy: none Previous Rx's Medication Instructions Recorded Last Taken Type ALBUTEROL NEB's [Proventil 0.083% 2.5 mg IH TID PRN #20 neb 04/17/18 Unknown Rx NEBS] Albuterol Mdi (or & Nicu Only) 2 puff IH QID PRN #1 inhalation 04/17/18 Unknown Rx [ProAir HFA Inhaler] Amoxicillin 500 mg PO BID #20 capsule 05/23/18 Unknown Rx Fluticasone [Flonase] 1 spray NS QDAY #1 bottle 05/23/18 Unknown Rx predniSONE [Deltasone] 50 mg PO QDAY #5 tab 05/23/18 Unknown Rx Amoxicillin/Potassium Clav 1 each PO BID 10 Days #20 tablet 05/31/19 Unknown Rx [Augmentin 875-125 Tablet] ALBUTEROL NEB's [Proventil 0.083% 2.5 mg IH TID PRN 30 Days #1 box 06/07/20 Unknown Rx NEBS] Albuterol Mdi (or & Nicu Only) 2 puff IH QID PRN 30 Days #1 06/07/20 Unknown Rx [ProAir HFA Inhaler] inhalation Montelukast [Singulair] 10 mg PO QPM 30 Days #30 tablet 06/07/20 Unknown Rx Prednisone [predniSONE 10 mg 10 mg PO .TAPER #1 tab.ds.pk 06/07/20 Unknown Rx (6-Day Pack, 21 Tabs)] ALBUTEROL NEB's [Proventil 0.083% 2.5 mg IH TID PRN #1 box 07/31/20 Unknown Rx NEBS] Albuterol Mdi (or & Nicu Only) 2 puff IH QID PRN #8.5 gram 07/31/20 Unknown Rx [ProAir HFA Inhaler] Prednisone [predniSONE 10 mg 10 mg PO .TAPER #1 tab.ds.pk 07/31/20 Unknown Rx (6-Day Pack, 21 Tabs)] Allergies Allergy/AdvReac Type Severity Reaction Status Date / Time No Known Allergies Allergy Verified 05/23/18 10:15 ED Review of Systems ROS: Stated complaint: ISABEL Other details as noted in HPI Comment: All other systems reviewed and negative Constitutional: denies: chills, fever Eyes: denies: eye pain, eye discharge, vision change ENT: denies: ear pain, throat pain Respiratory: wheezing. denies: cough, shortness of breath Cardiovascular: denies: chest pain, palpitations Endocrine: no symptoms reported Gastrointestinal: denies: abdominal pain, nausea, diarrhea Genitourinary: denies: urgency, dysuria, discharge Musculoskeletal: denies: back pain, joint swelling, arthralgia Skin: denies: rash, lesions Neurological: denies: headache, weakness, paresthesias Psychiatric: denies: anxiety, depression Hematological/Lymphatic: denies: easy bleeding, easy bruising ED Past Medical Hx - Past Medical History Previous Medical History?: Yes Hx Asthma: Yes - Surgical History Past Surgical History?: Yes Additional Surgical History: x3 - Social History Smoking Status: Never Smoker - Medications Home Medications: Home Medications Medication Instructions Recorded Confirmed Last Taken Type ALBUTEROL NEB's [Proventil 0.083% 2.5 mg IH TID PRN #20 neb 04/17/18 Unknown Rx NEBS] Albuterol Mdi (or & Nicu Only) 2 puff IH QID PRN #1 inhalation 04/17/18 Unknown Rx [ProAir HFA Inhaler] Amoxicillin 500 mg PO BID #20 capsule 05/23/18 Unknown Rx Fluticasone [Flonase] 1 spray NS QDAY #1 bottle 05/23/18 Unknown Rx predniSONE [Deltasone] 50 mg PO QDAY #5 tab 05/23/18 Unknown Rx Amoxicillin/Potassium Clav 1 each PO BID 10 Days #20 tablet 05/31/19 Unknown Rx [Augmentin 875-125 Tablet] ALBUTEROL NEB's [Proventil 0.083% 2.5 mg IH TID PRN 30 Days #1 box 06/07/20 Unknown Rx NEBS] Albuterol Mdi (or & Nicu Only) 2 puff IH QID PRN 30 Days #1 06/07/20 Unknown Rx [ProAir HFA Inhaler] inhalation Montelukast [Singulair] 10 mg PO QPM 30 Days #30 tablet 06/07/20 Unknown Rx Prednisone [predniSONE 10 mg 10 mg PO .TAPER #1 tab.ds.pk 06/07/20 Unknown Rx (6-Day Pack, 21 Tabs)] ALBUTEROL NEB's [Proventil 0.083% 2.5 mg IH TID PRN #1 box 07/31/20 Unknown Rx NEBS] Albuterol Mdi (or & Nicu Only) 2 puff IH QID PRN #8.5 gram 07/31/20 Unknown Rx [ProAir HFA Inhaler] Prednisone [predniSONE 10 mg 10 mg PO .TAPER #1 tab.ds.pk 07/31/20 Unknown Rx (6-Day Pack, 21 Tabs)] ED Physical Exam - General Limitations: No Limitations General appearance: alert, in no apparent distress - Head Head exam: Present: atraumatic, normocephalic - Eye Eye exam: Present: normal appearance - Neck Neck exam: Present: normal inspection, full ROM - Respiratory Respiratory exam: Present: wheezes (Expiratory wheezing bilateral lungs). Absent: respiratory distress, rales, rhonchi, stridor, chest wall tenderness, accessory muscle use, decreased breath sounds, prolonged expiratory - Cardiovascular Cardiovascular Exam: Present: regular rate, normal rhythm, normal heart sounds. Absent: bradycardia, tachycardia, irregular rhythm, systolic murmur, diastolic murmur, rubs, gallop - Extremities Exam Extremities exam: Present: full ROM, normal capillary refill - Back Exam Back exam: Present: full ROM - Neurological Exam Neurological exam: Present: alert, oriented X3, normal gait - Psychiatric Psychiatric exam: Present: normal affect, normal mood - Skin Skin exam: Present: warm, dry, intact, normal color. Absent: rash ED Course Vital Signs 07/31/20 07/31/20 11:23 12:56 Temperature 97.9 F Pulse Rate 88 Pulse Rate [ 88 Anterior Bilateral Throughout] Respiratory 20 Rate Respiratory 19 Rate [Anterior Bilateral Throughout] Blood Pressure 116/69 O2 Sat by Pulse 100 Oximetry - Reevaluation(s) Reevaluation #1: 07/31/20 11:37 Patient is speaking in full sentences with no signs of distress noted. ED Medical Decision Making - Medical Decision Making This is a 30-year-old female that presents with asthma exacerbation. Patient is stable and was examined by me. Chest x-ray has been obtained and dictated by the radiologist within normal limits. Patient is notified of the x-ray report with no questions noted by the patient. Patient did receive DuoNeb and steroids in the ED which patient the symptoms has resolved and subsided. Posttreatment and there is no wheezing upon auscultation. Patient is discharged with albuterol and prednisone. Patient was referred to Follow-up with a primary care doctor in 3-5 days or if symptoms worsen and continue return to emergency room as soon as possible. At time of discharge, the patient does not seem toxic or ill in appearance. No acute signs of distress noted. Patient agrees to discharge treatment plan of care. No further questions noted by the patient. This chart is dictated with using [employer] Critical care attestation.: If time is entered above; I have spent that time in minutes in the direct care of this critically ill patient, excluding procedure time. ED Disposition Clinical Impression: Asthma exacerbation Qualifiers: Asthma severity: mild Asthma persistence: intermittent Qualified Code(s): J45.21 - Mild intermittent asthma with (acute) exacerbation Disposition: -01 TO HOME OR SELFCARE Is pt being admited?: No Does the pt Need Aspirin: No Condition: Stable Instructions: Asthma, Adult Additional Instructions: Follow-up with a primary care doctor in 3-5 days or if symptoms worsen and continue return to emergency room as soon as possible. Prescriptions: Prednisone [predniSONE 10 mg (6-Day Pack, 21 Tabs)] 10 mg PO .TAPER #1 tab.ds.pk Albuterol Mdi (or & Nicu Only) [ProAir HFA Inhaler] 2 puff IH QID PRN #8.5 gram PRN Reason: Shortness Of Breath ALBUTEROL NEB's [Proventil 0.083% NEBS] 2.5 mg IH TID PRN #1 box PRN Reason: Wheezing Referrals: PRIMARY CAREMD [Primary Care Provider] - 3-5 Days FLO JAQUEZ MD [Staff Physician] - 3-5 Days Forms: Work/School Release Form(ED) Time of Disposition: 12:51
== END 2020-07-31 13:10 | disposition home or self-care (01) ==
LOC: ED 11:07
DX: J45.901 Unspecified asthma with (acute) exacerbation (principal); Z79.899 Other long term (current) drug therapy; Z98.890 Other specified postprocedural states
CPT/HCPCS: 94640; 99282; J7512; 94644